=== PATIENT | male | born 1955 | race Caucasian/White ===

== ENCOUNTER → 2020-05-30 | Outpatient (CLI) | payer OTHER ==
[~2020-05-30] MED LIST: ALBUTEROL2.5 MG/0.1 INH; AMITRIPTYLINE H50 M3 PO; ASA81BEC PO; ASPIRIN81 M2 PO; BACTRIM DS TAB1 EACH PO; BETAMETHASONE D15 G4 TOP; BUSPIRONE HCL10 MG PO; DEPO-TESTO200 MG/1 M IM; DOXYCYCLINE 10100 M2 PO; DUREZOL5 ML OPHTHALMIC; EPZICOM1 TA1 PO; ESZOPICLONE3 MG PO; FLONASE 0.05%50 MCG NASAL; HALCION0.25 MG PO; KLOR-CON 1010 MEQ PO; LEXAPRO 10 MG T10 M2 PO; LIPITOR 10 MG10 M1 PO; MS CONTIN15 MG PO; MS CONTIN30 MG PO; NEURONTIN 400400 M1 PO; PERCOCET 5-3251 EACH PO; PROLENSA3 ML OPHTHALMIC; REGLAN 10 MG TA10 M1 PO; SUSTIVA600 MG PO; TRIUMEQ TABLET1 EACH; VITAMIN B-1000 MCG/2 IM; XANAX 0.5 MG0.5 MG PO
== END ==
LOC: LAB 11:30
PROVIDERS: ATTEND Ophthalmology
DX: Z01.812 Encounter for preprocedural laboratory examination (principal); Z20.822 Contact with and (suspected) exposure to COVID-19

== ENCOUNTER 2020-06-02 06:06 | Day surgery (SDC) | payer OTHER ==
[~2020-06-02] VITALS: Ht 185.4 cm; Wt 89.8 kg
--- NOTE | ~2020-06-02 | O ---
[facility] [place] [address] OPERATIVE REPORT Name: SALLY LINDO Room #: 150-1 [facility].#: [id number] Admission: 06/02/20 Attend Phys: Tera Bustos MD Discharge: Date of : 59 Report #: [id number] THIS REPORT FOR: cc: Amina Zuñiga MD, Carrie W. MD White, William L. MD ~ DATE OF SERVICE: 06/02/2020 SURGEON: Tera Bustos MD IRON MINER: None. PREOPERATIVE DIAGNOSIS: Bilateral upper lid dermatochalasia with superior visual field defect. POSTOPERATIVE DIAGNOSIS: Bilateral upper lid dermatochalasia with superior visual field defect. OPERATION PERFORMED: Bilateral upper lid functional blepharoplasty. ANESTHESIA: Local with IV sedation. COMPLICATIONS: None. INDICATIONS FOR SURGERY: This patient has acquired upper lid dermatochalasia with superior visual field loss both eyes because of excessive upper lid tissues to include skin and fat. Visual field testing demonstrates dense superior visual defects. Retesting with the upper lid elevated shows an improvement in visual field loss of over 30% and in excess of 12 degrees. The current procedures are undertaken in order to improve the patient's visual function. Informed consent was obtained to include but not limited to the loss of vision, bleeding, infection, scarring, failure to improve the problem and need for further surgery. DESCRIPTION OF OPERATION: The patient was taken to the operating room, where 2% Xylocaine with epinephrine mixed with equal parts of 0.75% Marcaine with Wydase was administered transcutaneously to each upper lid. The patient was then prepped and draped in the usual sterile fashion and a skin-marking pen was then utilized to outline an upper lid crease that was symmetrical on each side. Graefe forceps were then used to quantitate the redundant upper lid skin and it was similarly outlined. The incisions were then made with Kishan scissors and a skin-muscle flap removed from each side with high-temp cautery. Hemostasis was achieved with the monopolar cautery as it was throughout the case. The orbital septum was then identified and the central and medial fat pads were [address] [address] OPERATIVE REPORT Name: SALLY LINDO Room #: 150-1 [facility]..#: [id number] Admission: 06/02/20 Attend Phys: Tera Bustos MD Discharge: Date of : 59 Report #: [id number] inspected. The redundant soft tissue was then sculpted with the monopolar cautery. The upper lid crease was then reformed with tightening of the pretarsal orbicularis muscle. The upper lid crease was then further reformed with multiple interrupted 6-0 chromic sutures. The skin was then closed with a running 6-0 plain gut suture. The wound was then cleaned and dressed with ophthalmic antibiotic ointment and a nonstick dressing. The patient was transported to the recovery area, where cold compresses were applied, having tolerated the procedure well with no anesthetic or operative complications being noted. By: [id number] Tera Bustos MD /nt
[2020-06-02 07:48] VITALS: BP 119/74
== END 2020-06-02 08:25 | disposition home or self-care (01) ==
LOC: OR 06:06 → TBA 06:07 → OR 08:25
PROVIDERS: ATTEND Ophthalmology
DX: H02.834 Dermatochalasis of left upper eyelid (principal); H02.831 Dermatochalasis of right upper eyelid; H53.462 Homonymous bilateral field defects, left side; H53.461 Homonymous bilateral field defects, right side; J45.909 Unspecified asthma, uncomplicated; F32.9 Major depressive disorder, single episode, unspecified; E78.00 Pure hypercholesterolemia, unspecified; B15.9 Hepatitis A without hepatic coma; Z98.890 Other specified postprocedural states; Z79.899 Other long term (current) drug therapy; Z85.828 Personal history of other malignant neoplasm of skin; Z86.73 Personal history of transient ischemic attack (TIA), and cerebral infarction without residual deficits; Z85.3 Personal history of malignant neoplasm of breast; Z91.041 Radiographic dye allergy status; Z88.8 Allergy status to other drugs, medicaments and biological substances
CPT/HCPCS: 50010; 50101; 50386; 50398; 51636; 56531; 62110; 62850; 70005